=== PATIENT | female | born 1940 | race Caucasian/White ===

== ENCOUNTER 2016-08-03 14:08 | Emergency (ER) | payer MEDICARE, OTHER | END 2016-08-03 17:22 | disposition home or self-care (01) | DX: S52.614A Nondisplaced fracture of right ulna styloid process, initial encounter for closed fracture (principal); X50.0XXA Overexertion from strenuous movement or load, initial encounter ==

== ENCOUNTER 2016-08-28 10:07 | Outpatient (CLI) | payer MEDICARE, OTHER | END 2016-08-28 10:08 | disposition home or self-care (01) | DX: S52.614A Nondisplaced fracture of right ulna styloid process, initial encounter for closed fracture (principal) ==

== ENCOUNTER 2016-09-14 13:10 | Outpatient (CLI) | payer MEDICARE, OTHER | END 2016-09-14 13:11 | disposition home or self-care (01) | DX: R30.0 Dysuria (principal) ==

== ENCOUNTER 2017-12-19 19:28 | Emergency (ER) | payer MEDICARE, OTHER ==
--- NOTE | 2017-12-19 21:51 | ED Physician Documentation ---
PD HPI SKIN - Stated complaint Stated Complaint: PX/RASH - Chief complaint Chief Complaint: General - History obtained from History obtained from: Patient - History of Present Illness Timing - onset: How many weeks ago (1) Timing - details: Gradual onset, Constant Pain level now: 8 Location: Bodywide Quality / character: Itchy, Burning Associated symptoms: No: Fever, Myalgias, Dyspnea Contributing factors: Unknown Recently seen: Clinic (evaluated by PMD, prescribed prednisone (BID, had first dose this AM and second dose tonight). Also taking benadryl. Presents due to intensely pruritis unrelieved with benadryl) Review of Systems Constitutional: denies: Fever, Myalgias Respiratory: denies: Dyspnea, Cough, Wheezing Skin: reports: Rash PD PAST MEDICAL HISTORY - Past Medical History Cardiovascular: Hypertension INSURANCE CLAIMS SUPERVISOR: Breast cancer - Past Surgical History Past Surgical History: Yes General: Bowel surgery - Present Medications Home Medications: Ambulatory Orders Medication Instructions Recorded Confirmed HYDROcod/ACETAM 5/325 [[place] 5/325] 1 ea PO Q6H PRN #5 tablet 08/03/16 Atenolol [Tenormin] 12/19/17 Chlorthalidone 12/19/17 DULoxetine [Cymbalta] 12/19/17 Lisinopril 12/19/17 hydrOXYzine pamoate [Hydroxyzine 25 - 50 mg PO Q6HR PRN #20 capsule 12/19/17 Pamoate] hydroCHLOROthiazide 12/19/17 12/19/17 [Hydrochlorothiazide] rOPINIRole [Requip] 12/19/17 - Allergies Allergies/Adverse Reactions: Allergies Allergy/AdvReac Type Severity Reaction Status Date / Time No Known Drug Allergies Allergy Verified 12/19/17 19:34 - Social History Does the pt smoke?: No Smoking Status: Never smoker Does the pt drink ETOH?: Yes Does the pt have substance abuse?: No - Immunizations Immunizations are current?: No - POLST Patient has POLST: No PD ED PE NORMAL - Vitals Vital signs reviewed: Yes - General General: Alert and oriented X 3, No acute distress, Well developed/nourished - HEENT HEENT: Moist mucous membranes, Pharynx benign (no perioral/intraoral swelling/ edema) - Respiratory Respiratory: No respiratory distress, Clear bilaterally - Abdomen Abdomen: Soft, Non tender - Extremities Extremities: No edema PD ED PE EXPANDED - Derm Derm: Urticaria (scattered urticaria on trunk (back, chest, abdomen) and all extremities. ) Results - Vitals Vitals: Oxygen O2 Source Room air PD MEDICAL DECISION MAKING - ED course Complexity details: considered differential, d/w patient, d/w family - Sepsis Event Vital Signs: Oxygen O2 Source Room air Departure - Departure Disposition: 01 Home, Self Care Clinical Impression: Urticaria Condition: Good Instructions: ED Urticaria Follow-Up: JOSE ANGEL FISHMAN MD [Primary Care Provider] - (3-4 days if symptoms persist) Prescriptions: hydrOXYzine pamoate [Hydroxyzine Pamoate] 25 - 50 mg PO Q6HR PRN #20 capsule PRN Reason: Itching Discharge Date/Time: 12/19/17 22:29
[2017-12-19] MEDS: DEXAMETHASONE 10 MG/ML VIAL PO STA (22:24)
[2017-12-19] MEDS: hydrOXYzine PAMOATE 25 MG CAPSULE PO STA ×2 (22:24→22:26)
[2017-12-19 22:29] VITALS: BP 129/91
== END 2017-12-19 22:29 | disposition home or self-care (01) ==
LOC: ED 19:28
DX: L50.9 Urticaria, unspecified (principal); I10 Essential (primary) hypertension; Z85.3 Personal history of malignant neoplasm of breast
CPT/HCPCS: 99283; A9270

== ENCOUNTER 2019-03-26 13:21 | Outpatient (CLI) | payer MEDICARE, OTHER ==
--- NOTE | 2019-04-06 02:47 | XRAY Report ---
Reason: OSTEO JOINT OF THUMB Procedure Date: 03/26/2019 Accession Number: [id number] / [id number] Procedure: XRS - Finger(s) BILAT CPT Code: Final Report FULL RESULT: EXAM: BILATERAL FIRST DIGIT RADIOGRAPHY EXAM DATE: 03/26/2019 01:25 PM CLINICAL HISTORY: Osteoarthritis of the thumb. COMPARISON: WRIST 4 VIEW RT 08/28/2016 10:31 AM. TECHNIQUE: 3 views. FINDINGS IMPRESSION: 1. No acute displaced fracture or suspicious bony lesion is demonstrated. 2. There is bilateral mild to moderate first MCP joint degenerative joint disease. Bilateral mild interphalangeal joint degenerative change. 3. There is moderate right first CMC joint degenerative joint disease and mild left first CMC joint degenerative joint disease. 4. Moderate bilateral radiocarpal degenerative change. RADIA
== END 2019-03-26 13:22 | disposition home or self-care (01) ==
LOC: DI.S 13:21
PROVIDERS: ATTEND Physician Assistant
DX: M18.0 Bilateral primary osteoarthritis of first carpometacarpal joints (principal); M19.042 Primary osteoarthritis, left hand; M19.041 Primary osteoarthritis, right hand; M19.032 Primary osteoarthritis, left wrist; M19.031 Primary osteoarthritis, right wrist
CPT/HCPCS: 73140

== ENCOUNTER 2019-04-17 11:40 | Outpatient (CLI) | payer MEDICARE, OTHER ==
--- NOTE | 2019-04-18 11:10 | XRAY Report ---
Reason: PAIN IN LEFT FOOT, M79.672 Procedure Date: 04/17/2019 Accession Number: [id number] / [id number] Procedure: XRS - Foot 3 View LT CPT Code: Final Report FULL RESULT: EXAM: LEFT FOOT RADIOGRAPHY EXAM DATE: 04/17/2019 11:56 AM. CLINICAL HISTORY: PAIN IN LEFT FOOT, M79. 672. COMPARISON: None. TECHNIQUE: 3 views. FINDINGS: Bones: Fracture in the proximal fifth metatarsal. Bunion deformity. Joints: No dislocation seen. Degenerative joint disease at the first metatarsal head. Soft Tissues: Soft tissue swelling. IMPRESSION: 1. Fracture in the proximal fifth metatarsal. RADIA
--- NOTE | 2019-04-18 11:12 | XRAY Report ---
Reason: Left ankle pain Procedure Date: 04/17/2019 Accession Number: [id number] / [id number] Procedure: XRS - Ankle 3 View LT CPT Code: Final Report FULL RESULT: EXAM: LEFT ANKLE RADIOGRAPHY EXAM DATE: 04/17/2019 11:55 AM. CLINICAL HISTORY: Left ankle pain. COMPARISON: FOOT 3 VIEW LT 04/17/2019 12:06 PM. TECHNIQUE: 3 views. FINDINGS: Bones: No acute fracture seen in the ankle. Fracture in the proximal fifth metatarsal. Joints: No dislocation seen. Mild degenerative changes. Ankle mortise appears intact. No joint effusion seen. Soft Tissues: Mild soft tissue swelling. IMPRESSION: 1. No acute fracture or dislocation seen in the ankle. 2. Fracture in the proximal fifth metatarsal. RADIA
== END 2019-04-17 11:41 | disposition home or self-care (01) ==
LOC: DI.S 11:40
PROVIDERS: ATTEND Registered Nurse
DX: S92.352A Displaced fracture of fifth metatarsal bone, left foot, initial encounter for closed fracture (principal)

== ENCOUNTER 2020-11-22 10:20 | Outpatient (CLI) | payer MEDICARE, OTHER ==
--- NOTE | 2020-11-22 11:04 | XRAY Report ---
PROCEDURE: Hip w/Pelvis 2-3V RT INDICATIONS: PAIN IN RIGHT HIP JOINT TECHNIQUE: AP pelvis with lateral view(s) of the right hip(s). COMPARISON: None. FINDINGS: Bones: No fractures or dislocations. Pelvic ring appears intact. No suspicious bony lesions. Mode rate bilateral degenerative hip joint space narrowing is present. Minimal periarticular osteophytes a re present. No erosions. Degenerative changes are present within the lower lumbar spine. Soft tissues: The visualized bowel gas pattern is normal. No suspicious soft tissue calcifications. IMPRESSION: Arthritic changes within the hips bilaterally. Reviewed by: Kirsty Mohan MD on 11/22/2020 11:03 AM PDT Approved by: Kirsty Mohan MD on 11/22/2020 11:03 AM PDT Station ID: [id number]
== END 2020-11-22 10:21 | disposition home or self-care (01) ==
LOC: DI.S 10:20
PROVIDERS: ATTEND Nurse Practitioner Family
DX: M25.551 Pain in right hip (principal); M16.0 Bilateral primary osteoarthritis of hip

== ENCOUNTER 2020-12-09 08:00 | Outpatient (CLI) | payer MEDICARE, OTHER | END 2020-12-09 23:59 | disposition home or self-care (01) | LOC: LAB.R 08:00 | PROVIDERS: ATTEND Internal Medicine | DX: R19.7 Diarrhea, unspecified (principal) | CPT/HCPCS: 81599; 87045; 87046; 87177; 87209; 87329; 87427 ==

== ENCOUNTER 2021-04-25 08:00 | Outpatient (CLI) | payer MEDICARE, OTHER ==
--- NOTE | 2021-04-25 17:52 | XRAY Report ---
PROCEDURE: Ribs w/PA Chest RT INDICATIONS: RIGHT SIDED RIB PAIN TECHNIQUE: 2 views of the right ribs were acquired, along with a single view chest. COMPARISON: None FINDINGS: Surgical changes and devices: None. Bones and chest wall: No displaced rib fractures or dislocations are identified. However, bones are severely osteopenic. Numerous thoracic and lumbar compression fractures. No suspicious bony lesions. Overlying soft tissues appear unremarkable. Lungs and pleura: No pleural effusions or pneumothorax. Lungs appear clear. Mediastinum: Mediastinal contours appear normal. Heart size is normal. IMPRESSION: 1. Severe osteoporosis with numerous thoracic and lumbar compression fractures. 2. No displaced rib fractures identified. However, bony detail is obscured by osteoporosis. 3. No evidence acute pulmonary process. Reviewed by: Amanuel Amaral MD on 04/25/2021 5:50 PM PST Approved by: Amanuel Amaral MD on 04/25/2021 5:50 PM PST Station ID: [id number]
== END 2021-04-25 23:59 | disposition home or self-care (01) ==
LOC: DI.S 08:00
PROVIDERS: ATTEND Emergency Medicine
DX: M80.08XA Age-related osteoporosis with current pathological fracture, vertebra(e), initial encounter for fracture (principal); R07.81 Pleurodynia

== ENCOUNTER 2024-02-21 08:00 | Outpatient (CLI) | payer MEDICARE, OTHER | END 2024-02-21 23:58 | disposition home or self-care (01) | LOC: LAB.N 08:00 | PROVIDERS: ATTEND Emergency Medicine | DX: R30.0 Dysuria (principal) | CPT/HCPCS: 87086 ==